=== PATIENT | female | born 1985 | race Two or more races ===

== ENCOUNTER 2020-12-05 09:39 | Emergency (ER) | payer MEDICAID ==
[~2020-12-05] VITALS: Ht 162.6 cm; Wt 60.3 kg
[2020-12-05 10:32] LABS: Urine WBC None Seen /hpf (0 - 5)
[2020-12-05 10:49] LABS: Urine Bacteria NONE SEEN /hpf (None Seen); Urine Blood 1+ /uL (Negative); Urine Mucus FEW (None Seen); Urine Specific Gravity 1.018 (1.001-1.035)
[2020-12-05 11:09] VITALS: BP 114/76
[2020-12-05] MEDS ORDERED: ACETAMINOPHEN 325 MG TAB PO ONE (11:15)
[2020-12-05] MEDS ORDERED: cefTRIAXone SOD 1,000 MG VL IM ONE (11:15)
== END 2020-12-05 11:48 | disposition home or self-care (01) ==
LOC: ER 09:39
DX: L03.116 Cellulitis of left lower limb (principal)
CPT/HCPCS: 81001; 96372; 99283; J0696